=== PATIENT | female | born 1975 | race African-American/Black ===

== ENCOUNTER → 2018-11-06 | Outpatient (CLI) | payer OTHER ==
[~2018-11-06] MED LIST: ANTIBIOTIC; BIRTH CONTROL PO; EXCEDRIN CAPLE1 EACH PO; LISINOPRIL10 MG PO; PHENERGAN 25 MG25 M1 PO
== END ==
LOC: ULTRA 10:55 → RAD 10:55
DX: Z12.31 Encounter for screening mammogram for malignant neoplasm of breast (principal); N60.01 Solitary cyst of right breast; N60.02 Solitary cyst of left breast

== ENCOUNTER 2021-08-13 16:38 | Emergency (ER) | payer OTHER ==
[~2021-08-13] VITALS: Ht 165.1 cm; Wt 86.2 kg
[2021-08-13] MEDS ORDERED: MELOXICAM15 MG PO (18:57)
[2021-08-13 19:34] VITALS: BP 158/78
== END 2021-08-13 19:35 | disposition home or self-care (01) ==
LOC: ER 16:38
DX: M79.605 Pain in left leg (principal); I10 Essential (primary) hypertension; G43.909 Migraine, unspecified, not intractable, without status migrainosus; Z79.82 Long term (current) use of aspirin; Z79.899 Other long term (current) drug therapy